=== PATIENT | male | born 1960 | race Caucasian/White ===

== ENCOUNTER 2018-07-12 16:25 | Observation (INO) ==
[2018-07-12] MEDS ORDERED: Morphine Inj 4 MG/ML Vial IV.PUSH ONE ×2 (17:23→19:40)
[2018-07-12] MEDS ORDERED: Aspirin 325 MG Tablet PO ONE (17:23)
--- NOTE | 2018-07-12 17:26 | ED ---
HPI General Chief complaint: Hypertension Stated complaint: High BP, left arm pain Time Seen by Provider: 07/12/18 17:18 Source: patient Mode of arrival: ambulatory Limitations: no limitations History of Present Illness HPI narrative: 57-year-old male patient with history of hypertension presents to the ER today because he states that his blood pressure was [facility], has been having 1 week history of left arm paresthesias and discomfort which she states is a 6 out of 10. It does not get worse with movement and is not positional. She denies any chest pains, nausea, shortness of breath, or other symptoms. He did take his hydrochlorothiazide this morning. Modifying Factors: None Associated Signs & Symptoms: Left arm discomfort, elevated blood pressure Risk Factors: History of hypertension Related Data Home Medications Medication Instructions Recorded Confirmed hydrochlorothiazide 07/12/18 07/12/18 Allergies Allergy/AdvReac Type Severity Reaction Status Date / Time No Known Allergies Allergy Verified 07/12/18 17:23 Review of Systems ROS: all other systems reviewed are negative [facility] Medical History Medical History HTN (hypertension) (Acute) Social History Social History Second Hand Smoke Exposure: No Smoking Status: Former smoker Tobacco Type: Cigarettes How Often Do You Have a Drink Containing Alcohol: 2 to 4 times a month Recent Travel in [facility] within the Last 8 Weeks: No Recent Out of Country Travel within the Last 8 Weeks: No Immunization History Tetanus Immunization: <5 Years Tetanus Immunization Year if Known: 2018 Exam Narrative Exam Narrative: GENERAL: Well-developed middle-age male patient currently in mild distress. Awake and oriented x3. SKIN: Focused skin assessment warm/dry. HEAD: Atraumatic. Normocephalic. EYES: Pupils equal and round. No scleral icterus. No injection or drainage. ENT: No nasal bleeding or discharge. Mucous membranes pink and moist. NECK: Trachea midline. No JVD. CARDIOVASCULAR: Regular rate and rhythm. No murmur appreciated. Pulses are present and equal bilaterally. RESPIRATORY: No accessory muscle use. Clear to auscultation. Breath sounds equal bilaterally. GASTROINTESTINAL: Abdomen soft, non-tender, nondistended. Hepatic and splenic margins not palpable. MUSCULOSKELETAL: No obvious deformities. No clubbing. No cyanosis. No edema. EXTREMITIES: No clubbing, cyanosis, or edema. No joint tenderness, effusion, or edema noted. Nontender range of motion of the left arm. No point tenderness. NEUROLOGICAL: Awake and alert. No obvious cranial nerve deficits. Motor grossly within normal limits. Normal speech. PSYCHIATRIC: Appropriate mood and affect; insight and judgment normal. Course Initial Documented Vital Signs Temperature 98.1 F 07/12/18 16:39 Pulse Rate 68 07/12/18 16:39 Respiratory Rate 16 07/12/18 16:39 Blood Pressure 183/103 H 07/12/18 16:39 Pulse Oximetry 98 07/12/18 16:39 Last Documented Vital Signs Temperature 98.1 F 07/12/18 16:39 Pulse Rate 60 07/12/18 18:41 Respiratory Rate 16 07/12/18 18:41 Blood Pressure 168/96 H 07/12/18 18:41 Pulse Oximetry 98 07/12/18 19:04 Medical Decision Making MDM Narrative Medical decision making narrative: Patient was given aspirin and nitroglycerin in the ER with improvement of blood pressure. EKG and lab work was fairly unremarkable. However, there is concerned that the left arm pain could be an anginal equivalent and plan would be to admit the patient for further evaluation and a chest pain center. Medical Screen Exam Complete: Yes Emergency Medical Condition: Yes Differential Diagnosis Differential Diagnosis: Dysrhythmias versus anginal equivalent versus hypertensive urgency Lab Data Result diagrams: 07/12/18 17:15 07/12/18 17:15 Lab Results 07/12/18 07/12/18 Range/Units 17:15 17:15 WBC 9.1 (4.0-11.0) th/mm3 RBC 5.16 (4.50-5.90) mil/mm3 Hgb 15.6 (13.0-17.0) gm/dL Hct 45.0 (39.0-51.0) % MCV 87.2 (80.0-100.0) fL MCH 30.2 (27.0-34.0) pg MCHC 34.6 (32.0-36.0) % RDW 13.8 (11.6-17.2) % Plt Count 251 (150-450) th/mm3 MPV 7.8 (7.0-11.0) fL Neut % (Auto) 40.6 (16.0-70.0) % Lymph % (Auto) 49.9 H (9.0-44.0) % Ballard % (Auto) 7.5 (0.0-8.0) % Eos % (Auto) 1.2 (0.0-4.0) % Baso % (Auto) 0.8 (0.0-2.0) % Neut # (Auto) 3.7 (1.8-7.7) th/mm3 Lymph # (Auto) 4.5 (1.0-4.8) th/mm3 Ballard # (Auto) 0.7 (0.0-0.9) th/mm3 Eos # (Auto) 0.1 (0.0-0.4) th/mm3 Baso # (Auto) 0.1 (0.0-0.2) th/mm3 WBC Differential . Differential Comment Auto diff final Sodium 138 (136-145) meq/L Potassium 3.2 L (3.5-5.1) meq/L Chloride 101 (98-107) meq/L Carbon Dioxide 30.2 (21.0-32.0) meq/L Anion Gap 7 (5-15) meq/L BUN 19 H (7-18) mg/dL Creatinine 1.09 (0.60-1.30) mg/dL Estimated GFR 69 L (>89) mL/min Random Glucose 78 (74-106) mg/dL Calcium 8.8 (8.5-10.1) mg/dL Total Bilirubin 0.7 (0.2-1.0) mg/dL AST 35 (15-37) U/L ALT 57 (12-78) U/L Alkaline Phosphatase 93 (45-117) U/L Troponin I 0.02 (0.02-0.05) ng/mL Total Protein 8.4 H (6.4-8.2) g/dL Albumin 4.6 (3.4-5.0) g/dL Imaging Data Radiologist's impression: Chest X-Ray 07/12/18 17:23 CONCLUSION: No acute cardiopulmonary disease. Discharge Plan Discharge Disposition Patient Disposition: ED Admit(ED Internal Use Only) Discharge Condition Condition: Stable Discharge Order Discharge Orders: ED Use Only Admit Order (Routine); Ordered 07/12/18 Ordered By: Naeem Cisneros Discharge Details Anticipated Discharge Date: 07/12/18 Diagnosis: Chest pain Physicians Team ED Provider: Naeem Cisneros Primary Care Provider: UNKNOWN, Attending Provider: Dion Bell Discharge Interventions Interventions: Vital Signs Last Done: 07/12/18 17:17 Status ED Status: Admitted Observation Patient
--- NOTE | 2018-07-12 18:00 | XR ---
EXAM DATE: 07/12/2018 5:53 PM EST AGE/SEX: 57 years / Male INDICATIONS: Chest pain. Patient states left arm numbness for one week. CLINICAL DATA: This is the patient's initial encounter. Patient reports that signs and symptoms have been present for 1 week and indicates a pain score of 0/10. MEDICAL/SURGICAL HISTORY: . Smoker. None. COMPARISON: None. FINDINGS: A single AP view of the chest demonstrates the lungs to be symmetrically aerated without evidence of mass, infiltrate or effusion. The cardiomediastinal contours are unremarkable. Osseous structures a re intact. CONCLUSION: No acute cardiopulmonary disease. Electronically signed by: Sumit Yoder MD Board Certified Radiologist 07/12/2018 5:58 PM EST
[2018-07-12 18:21] LABS: Baso # (Auto) 0.1 th/mm3 (0.0-0.2); Baso % (Auto) 0.8 % (0.0-2.0); Eos # (Auto) 0.1 th/mm3 (0.0-0.4); Eos % (Auto) 1.2 % (0.0-4.0); Hemoglobin 15.6 gm/dL (13.0-17.0); Lymph # (Auto) 4.5 th/mm3 (1.0-4.8); Lymph % (Auto) 49.9 % (9.0-44.0); Mean Corpuscular HGB Conc 34.6 % (32.0-36.0); Mean Corpuscular Hemoglobin 30.2 pg (27.0-34.0); Mean Corpuscular Volume 87.2 fL (80.0-100.0); Mean Platelet Volume 7.8 fL (7.0-11.0); Mono # (Auto) 0.7 th/mm3 (0.0-0.9); Mono % (Auto) 7.5 % (0.0-8.0); Neut # (Auto) 3.7 th/mm3 (1.8-7.7); Neut % (Auto) 40.6 % (16.0-70.0); Platelet Count 251 th/mm3 (150-450); Red Blood Count 5.16 mil/mm3 (4.50-5.90); Red Cell Distribution Width 13.8 % (11.6-17.2); White Blood Count 9.1 th/mm3 (4.0-11.0)
[2018-07-12 18:38] LABS: Alanine Aminotransferase 57 U/L (12-78)
[2018-07-12 18:39] LABS: Albumin 4.6 g/dL (3.4-5.0); Anion Gap 7 meq/L (5-15); Aspartate Aminotransferase 35 U/L (15-37); Blood Urea Nitrogen 19 mg/dL (7-18); Calcium 8.8 mg/dL (8.5-10.1); Carbon Dioxide 30.2 meq/L (21.0-32.0); Chloride 101 meq/L (98-107); Glomerular Filtration Rate 69 mL/min (>89); Glucose,Random 78 mg/dL (74-106); Potassium 3.2 meq/L (3.5-5.1); Sodium 138 meq/L (136-145)
[2018-07-12 18:42] LABS: Alkaline Phosphatase 93 U/L (45-117); Total Protein 8.4 g/dL (6.4-8.2); Troponin I 0.02 ng/mL (0.02-0.05)
[2018-07-12 20:49] LABS: Creatine Kinase 232 U/L (39-308)
[2018-07-12] MEDS: Morphine Inj 4 MG/ML Vial IV.PUSH PRN (22:42)
[2018-07-12 23:38] LABS: Creatine Kinase 229 U/L (39-308)
[2018-07-13] MEDS: Morphine Inj 4 MG/ML Vial IV.PUSH PRN ×2 (04:52→09:21)
[2018-07-13] MEDS ORDERED: Acetaminophen 500 MG Tablet PO PRN (07:39)
--- NOTE | 2018-07-13 08:30 | P.HPCA ---
History of Present Illness Primary Care Physician: [facility] Chief Complaint: Elevated blood pressure and left arm numbness History of Present Illness: 57-year-old male with history of hypertension and hyperlipidemia presents emergency room after being directed by the [facility]. Yesterday while at physical therapy for right hand reported left arm numbness and tingling times 1 week. Blood pressure was taken and found to be 180/120. At that time he was encouraged to follow-up with his primary care provider, waited 2 hours he cannot wait anymore therefore proceeded to work. Intermittently throughout the day to blood pressure and blood pressures consistently reported to be 190s range. Called [facility] to report blood pressures and was directed to ER for further evaluation. No headache or dizziness. In regards to left numbness and tingling onset 1 week. No recent injury or remote injury. No weakness. Duration constant. No particular position makes pain better or worse. Denies any chest pain. No dyspnea, diaphoresis, nausea, vomiting, recent illness, or fever. Denies similar pain in the past. No known coronary artery disease, diabetes, or hyperlipidemia. Recently quit smoking cigars earlier this month for planned right hip and right knee surgery. Past cardiac testing None Social history Known hypertension and hyperlipidemia. No known diabetes. Recently quit smoking cigars 06/25/18. Rare alcohol use. Occasional marijuana use for right knee pain relief. [employer] . Works as a complaint investigator. Family history Noncontributory for early onset cardiovascular disease - Diagnosis (1) Hypertension (2) Radiculopathy of arm (3) Hypokalemia Review of Systems All other systems reviewed negative except as stated in [facility] PMFSH - History History Provided By: Patient - Medical History Medical History: Medical History (Last Reviewed 07/13/18 @ 08:26 by JOSE Fierro) HTN (hypertension) - Family History Family History: Family History (Last Updated 07/13/18 @ 08:26 by JOSE Fierro) Father CVA (cerebral vascular accident) - Tobacco History Second Hand Smoke Exposure: No Tobacco Use In Past 30 Days: Yes Smoking Status: Former smoker Tobacco Type: Cigars (2 cigars weekly) - Alcohol History How Often Do You Have a Drink Containing Alcohol: 2 to 4 times a month - Substance Use History Substance History: No History of Abuse, Active Abuse - Substance Use Type Marijuana Route Used: Inhalation (Pain relief) - Travel History Recent Travel in the [place] Within the Last 8 Weeks: No Recent Travel Out of the Country Within the Last 8 Weeks: No - Immunization History Tetanus Immunization: <5 Years Tetanus Immunization Year if Known: 2018 Medications and Allergies Active Medications: Active Medications Acetaminophen (Tylenol) 500 mg PO Q4H PRN PRN Reason: HEADACHE Morphine Sulfate (Morphine Inj) 4 mg IV.PUSH Q4H PRN PRN Reason: PAIN SCALE 1 TO 10 Last Admin: 07/13/18 04:52 Dose: 4 mg Nitroglycerin (Nitrostat Sl) 0.4 mg SL Q5M PRN PRN Reason: CHEST PAIN Ondansetron HCl (Zofran Inj) 4 mg IV.PUSH Q6H PRN PRN Reason: NAUSEA Sodium Chloride (Ns Flush) 2 ml IV.FLUSH UNSCH PRN PRN Reason: FLUSH AFTER USING IV ACCESS Last Admin: 07/12/18 17:40 Dose: 2 ml Sodium Chloride (Ns Flush) 2 ml IV.FLUSH BID CAROL Last Admin: 07/12/18 22:42 Dose: 2 ml Sodium Chloride (Ns Flush) 2 ml IV.FLUSH PRN PRN PRN Reason: FLUSH AFTER USING IV ACCESS Allergies Allergy/AdvReac Type Severity Reaction Status Date / Time No Known Allergies Allergy Verified 07/12/18 17:23 Home Medications Medication Instructions Recorded Confirmed Type atorvastatin 40 mg PO QPM 07/12/18 07/12/18 History duloxetine 20 mg PO DAILY 07/12/18 07/12/18 History hydrochlorothiazide 25 mg PO DAILY 07/12/18 07/12/18 History ibuprofen 800 mg PO TID 07/12/18 07/12/18 History melatonin 3 mg PO HS PRN 07/12/18 07/12/18 History potassium chloride 10 meq PO DAILY 07/12/18 07/12/18 History Exam Vital signs: Vital Signs 07/12/18 16:39 07/12/18 17:17 07/12/18 18:41 Temperature 98.1 F Pulse Rate 68 60 Respiratory Rate 16 16 Blood Pressure 183/103 H 196/107 H 168/96 H Pulse Oximetry 98 98 07/12/18 19:04 07/12/18 20:06 07/12/18 21:13 Temperature Pulse Rate 66 69 Respiratory Rate 18 Blood Pressure 127/73 Pulse Oximetry 98 96 07/12/18 22:45 07/12/18 23:35 07/13/18 04:00 Temperature 98.2 F 98.0 F Pulse Rate 60 56 L Respiratory Rate 16 16 16 Blood Pressure 131/78 138/82 Pulse Oximetry 96 95 07/13/18 05:00 Temperature Pulse Rate Respiratory Rate 18 Blood Pressure Pulse Oximetry Intake & Output 07/12/18 07/13/18 07/13/18 18:59 06:59 18:59 Intake Total 360 / 360 Balance 360 / 360 Weight 101.151 kg 101.151 kg Intake: Oral 360 / 360 Other: # Voids 2 Date of Last Bowel Movement 07/12/18 Weight On Admission 2.495 kg Narrative: GENERAL: Alert WN, WD, NAD, pleasant, -Thai, obese male HEAD: NC, AT EYES: Sclera clear, conjunctiva without injection ENT: Mucous membranes pink and moist NECK: Supple, no masses, trachea midline CV: RRR, without murmur, rub, gallop, no JVD, S1-S2. Chest wall nontender to palpation RESP: Clear lungs throughout bilateral, no crackles, wheeze, rhonchi, symmetrical chest rise, nonlabored, able to speak in full sentences ABD: Soft, NT, ND, no masses, positive bowel tones EXT: Pulses +2x4, no dependent edema MS: Normal tone x4 extremities, nontender with passive left shoulder and cervical range of motion, no obvious deformities, full range of motion NEURO: Motor strength 5/5 PSYCH: A+O x3, pleasant affect, appropriate speech, mood, insight and judgment SKIN: Normal turgor, normal texture, no lesions, no rashes, sluggish cap refill , even hair distribution Results 07/12/18 17:15 07/12/18 17:15 Cardiac Enzymes 07/12/18 07/12/18 07/12/18 Range/Units 17:15 20:04 23:00 AST 35 (15-37) U/L Troponin I 0.02 Less than 0.02 L Less than 0.02 L (0.02-0.05) ng/mL CBC 07/12/18 Range/Units 17:15 WBC 9.1 (4.0-11.0) th/mm3 RBC 5.16 (4.50-5.90) mil/mm3 Hgb 15.6 (13.0-17.0) gm/dL Hct 45.0 (39.0-51.0) % Plt Count 251 (150-450) th/mm3 Neut # (Auto) 3.7 (1.8-7.7) th/mm3 Lymph # (Auto) 4.5 (1.0-4.8) th/mm3 Pope # (Auto) 0.7 (0.0-0.9) th/mm3 Eos # (Auto) 0.1 (0.0-0.4) th/mm3 Baso # (Auto) 0.1 (0.0-0.2) th/mm3 Comprehensive Metabolic Panel 07/12/18 Range/Units 17:15 Sodium 138 (136-145) meq/L Potassium 3.2 L (3.5-5.1) meq/L Chloride 101 (98-107) meq/L Carbon Dioxide 30.2 (21.0-32.0) meq/L BUN 19 H (7-18) mg/dL Creatinine 1.09 (0.60-1.30) mg/dL Calcium 8.8 (8.5-10.1) mg/dL AST 35 (15-37) U/L ALT 57 (12-78) U/L Alkaline Phosphatase 93 (45-117) U/L Total Protein 8.4 H (6.4-8.2) g/dL Albumin 4.6 (3.4-5.0) g/dL Intake and Output 07/12/18 07/13/18 07/13/18 22:59 06:59 14:59 Intake Total 360 / 360 Balance 360 / 360 Intake: Oral 360 / 360 Other: # Voids 2 Date of Last Bowel Movement 07/12/18 Weight 101.151 kg Weight On Admission 2.495 kg - Imaging and Cardiology Imaging: Impressions Chest X-Ray 07/12/18 17:23 CONCLUSION: No acute cardiopulmonary disease. EKG interpretations - EKG EKG results cardiology: sinus rhythm, normal axis (Nonspecific ST segment change ) Caprini VTE Risk Assessment Caprini VTE Risk Assessment: No/Low Risk (score <= 1) Caprini Risk Assessment Model: Point Value = 1 Point Value = 2 Point Value = 3 Point Value = 5 Age 41-60 Minor surgery BMI > 25 kg/m2 Swollen legs Varicose veins or History of unexplained or recurrent spontaneous Oral contraceptives or hormone replacement Sepsis (< 1 month) Serious lung disease, including pneumonia (< 1 month) Abnormal pulmonary function Acute myocardial infarction Congestive heart failure (< 1 month) History of inflammatory bowel disease Medical patient at bed rest Age 61-74 Arthroscopic surgery Major open surgery (> 45 min) Laparoscopic surgery (> 45 min) Malignancy Confined to bed (> 72 hours) Immobilizing plaster cast Central venous access Age >= 75 History of VTE Family history of VTE Factor V Leiden Prothrombin [id number] Lupus anticoagulant Anticardiolipin antibodies Elevated serum homocysteine Heparin-induced thrombocytopenia Other congenital or acquired thrombophilia Stroke (< 1 month) Elective arthroplasty Hip, pelvis, or leg fracture Acute spinal cord injury (< 1 month) Prophylaxis Regimen: Total Risk Factor Score Risk Level Prophylaxis Regimen 0-1 Low Early ambulation 2 Moderate Order ONE of the following: *Sequential Compression Device (SCD) *Heparin 5000 units SQ BID 3-4 Higher Order ONE of the following medications: *Heparin 5000 units SQ TID *Enoxaparin/Lovenox 40 mg SQ daily (WT < 150 kg, CrCl > 30 mL/min) *Enoxaparin/Lovenox 30 mg SQ daily (WT < 150 kg, CrCl > 10-29 mL/min) *Enoxaparin/Lovenox 30 mg SQ BID (WT < 150 kg, CrCl > 30 mL/min) AND/OR *Sequential Compression Device (SCD) 5 or more Highest Order ONE of the following medications: *Heparin 5000 units SQ TID (Preferred with Epidurals) *Enoxaparin/Lovenox 40 mg SQ daily (WT < 150 kg, CrCl > 30 mL/min) *Enoxaparin/Lovenox 30 mg SQ daily (WT < 150 kg, CrCl > 10-29 mL/min) *Enoxaparin/Lovenox 30 mg SQ BID (WT < 150 kg, CrCl > 30 mL/min) AND *Sequential Compression Device (SCD) Assessment and Plan - Assessment (1) Hypertension Code(s): I10 - Essential (primary) hypertension Status: Chronic Plan: Admitted chest pain center. ACS ruled out 3 sets of EKGs and cardiac enzymes. Will be seen and evaluated by Dr. Ponce woods. Discussed likely stress test due to risk factors not current presenting symptoms. Further disposition to follow. Continue to monitor. Blood pressures have since normalized. Consider changing hydrochlorothiazide to amlodipine due to hypokalemia and prescribed potassium tablets. Discussed importance of tight blood pressure control, increasing daily activity, and sodium restriction. (2) Radiculopathy of arm Code(s): M54.10 - Radiculopathy, site unspecified Status: Acute Plan: Instructed to follow-up with [facility] upon discharge. (3) Hypokalemia Code(s): E87.6 - Hypokalemia Status: Acute Plan: 20 Meq KCL given. Instructed to discuss with PCP since hctz changed to amlodipine if he should continue potassium supplementations daily. H&P: Quality - VTE Deep Vein Thrombosis/Pulmonary Embolism Present on Admission: No (1) Hypertension Qualifiers: Hypertension type: unspecified Qualified Code(s): I10 - Essential (primary) hypertension
[2018-07-13 08:34] VITALS: RESP 16
[2018-07-13] MEDS ORDERED: amLODIPine 5 MG Tablet PO SCH (09:00)
[2018-07-13] MEDS ORDERED: Ketorolac Inj 30 MG/ML (IVP) Vial IV.PUSH ONE (13:30)
[2018-07-13] MEDS ORDERED: Regadenoson Inj 0.4 MG/5 ML Syringe IV.PUSH ONE (14:29)
--- NOTE | 2018-07-13 15:38 | NM ---
EXAM DATE: 07/13/2018 3:19 PM EST AGE/SEX: 57 years / Male INDICATIONS:Angina. . Left arm pain. CLINICAL DATA: This is the patient's initial encounter. Patient reports that signs and symptoms have been present for 1 day and indicates a pain score of 6/10. MEDICAL/SURGICAL HISTORY: Hypertension. None. COMPARISON: No prior exams available for comparison. DOSE: 8.7 mCi Tc 99m Myoview at rest 34.8 mCi [id number] at stress 0.4 mg Lexiscan STRESS SYMPTOMS: None. EJECTION FRACTION: 55 % TECHNIQUE: The patient underwent pharmacologic stress with infusion of prescribed dose. Continuous ECG tracing was monitored during stress. Gated SPECT imaging was performed after stress and conventi onal SPECT imaging was performed at rest. The examination was performed on a SPECT/CT scanner, both attenuation and non-corrected datasets were reviewed. FINDINGS: Distribution: The maximum perfused segment at stress is in the anterior wall. Perfusion Study: The pattern of perfusion at stress is within normal limits. Gated Study: There are intact wall motion and wall thickening without hypokinetic or dyskinetic segm ents. The ejection fraction is calculated at 55%. RISK CATEGORY: Low (<1% Annual Motality Rate) CONCLUSION: Negative examination. Electronically signed by: Miah Paredes MD Board Certified Radiologist 07/13/2018 3:36 PM EST
[2018-07-13 15:57] VITALS: BP 170/101; PULSE 71; TEMP 97.9; O2SAT 94
--- NOTE | 2018-07-14 10:14 | TR ---
Date Performed: 07/13/2018 Time Performed: 14:27:16 DOCTOR: Ponce Summers DRUG LIST: CLINICAL HISTORY: REASON FOR TEST: REASON FOR ENDING: OBSERVATION: CONCLUSION: COMMENTS: Lexiscan stress test was performed under standard four minute protocol. Radionuclide was injected one minute prior to ending the test. No electrocardiographic abormalities were present t o suggest ischemia. Nuclear imaging and interpretation are pending.
--- NOTE | 2018-07-14 10:23 | ECG ---
Date Performed: 07/12/2018 Time Performed: 20:22:55 PTAGE: 57 years EKG: SINUS BRADYCARDIA NONSPECIFIC T-WAVE ABNORMALITY BORDERLINE ECG PREVIOUS TRACING : 07/12/2018 17.27 Since previous tracing, no significant change noted DOCTOR: Ponce Summers Interpretating Date/Time 07/14/2018 10:22:56
--- NOTE | 2018-07-14 10:23 | ECG ---
Date Performed: 07/12/2018 Time Performed: 23:32:43 PTAGE: 57 years EKG: SINUS BRADYCARDIA NONSPECIFIC T-WAVE ABNORMALITY BORDERLINE ECG PREVIOUS TRACING : 07/12/2018 20.22 Since previous tracing, no significant change noted DOCTOR: Ponce Summers Interpretating Date/Time 07/14/2018 10:22:41
--- NOTE | 2018-07-14 10:24 | ECG ---
Date Performed: 07/12/2018 Time Performed: 17:27:36 PTAGE: 57 years EKG: Sinus rhythm NONSPECIFIC T-WAVE ABNORMALITY BORDERLINE ECG NO PREVIOUS TRACING DOCTOR: Ponce Summers Interpretating Date/Time 07/17/2018 07:14:04
== END 2018-07-13 18:30 | disposition home or self-care (01) ==
LOC: NEDA 16:25 → NEPC 16:25 → NEPHCDU 20:42
PROVIDERS: ADMIT Internal Medicine Cardiovascular Disease; ATTEND Internal Medicine Cardiovascular Disease